=== PATIENT | female | born 1995 | race Hispanic/Latino ===

== ENCOUNTER 2018-10-04 10:54 | Observation (INO) | payer OTHER ==
[2018-10-04] MEDS ORDERED: CLINDAMYCIN 900MG/D5W 0 MG/0 ML IVPB IV ONE (11:32)
[2018-10-04] MEDS ORDERED: LIDOCAINE 1% MPF 5 ML VIAL ONE (11:32)
[2018-10-04 11:53] LABS: Absolute Lymphocytes (CBC) 1.8 K/uL (0.7-4.9); Basophils % 0.3 % (0-1.3); Lymphocytes % 13.8 % (15.3-44.8); MPV 10.1 fL (7.6-11.3); RBC Red Blood Cell Count 4.78 M/uL (3.86-4.86)
[2018-10-04] MEDS ORDERED: FENTANYL CITR 100 MCG/2 ML ONE (11:53)
[2018-10-04] MEDS ORDERED: CLINDAMYCIN 900MG/D5W 900 MG/50 ML IVPB IV ONE (11:54)
[2018-10-04] MEDS ORDERED: ACETAMINOPHEN 500 MG TAB ONE (11:54)
[2018-10-04 12:07] LABS: Urine Specific Gravity 1.025 (1.005-1.030)
[2018-10-04 12:08] LABS: Urine Blood TRACE (NEG); Urine Glucose NEGATIVE (NEG); Urine Protein 1+ (NEG); Urine pH 5.5 (5.0-7.0)
[2018-10-04 12:20] LABS: BUN Blood Urea Nitrogen 7 mg/dL (7-18); Bicarbonate 24 mmol/L (21-32); Glucose Level 95 mg/dL (74-106); Potassium 3.7 mmol/L (3.5-5.1); Sodium Level 138 mmol/L (136-145)
[2018-10-04 12:33] LABS: Urine Bacteria 20-50 /HPF (<20); Urine Culture Reflex Order ND; Urine Mucus 3+ /HPF (NONE SEEN); Urine RBC <5 /HPF (NONE SEEN)
[2018-10-04] MEDS ORDERED: PIPER/TAZO/NS 3.375gm 3.375 GM/100 ML BAG ONE (15:46)
[2018-10-04] MEDS ORDERED: VANCOMYCIN 1.5 GM in NA CHLORIDE 0.9% 500 ML IVPB ONE (16:00)
--- NOTE | 2018-10-04 16:04 | ER ---
Nurse's Notes [facility] Name: Mariya Herrera Age: 23 yrs Sex: Female : 1995 Arrival Date: 10/04/2018 Time: 10:59 Bed 19 Private MD: None, None Diagnosis: acute pilonidal abscess Presentation: 10/04 11:01 Presenting complaint: Abscess on buttock x 2-3 days. Transition of care: patient was hb not received from another setting of care. Onset of symptoms was October 02, 2018. Risk Assessment: Do you want to hurt yourself or someone else? Patient reports no desire to harm self or others. Initial Sepsis Screen: Does the patient meet any 2 criteria? No. Patient's initial sepsis screen is negative. Does the patient have a suspected source of infection? No. Patient's initial sepsis screen is negative. Care prior to arrival: None. 11:01 Method Of Arrival: Ambulatory hb 11: Acuity: RAMIREZ 4 hb Triage Assessment: 11: General: Appears in no apparent distress. comfortable, Behavior is calm, cooperative, bp appropriate for age. Pain: Complains of pain in buttocks. EENT: No deficits noted. Neuro: No deficits noted. Cardiovascular: No deficits noted. Respiratory: No deficits noted. GI: No signs and/or symptoms were reported involving the gastrointestinal system. : No signs and/or symptoms were reported regarding the genitourinary system. Derm: Abscess located on buttocks. Musculoskeletal: No deficits noted. 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 - Social history:: Smoking status: Patient/guardian denies using tobacco. - Ebola Screening: : No symptoms or risks identified at this time. - Family history:: not pertinent. - Hospitalizations: : No recent hospitalization is reported. Screenin:07 Abuse screen: Denies threats or abuse. Denies injuries from another. Nutritional bp screening: No deficits noted. Tuberculosis screening: No symptoms or risk factors identified. Fall Risk None identified. Assessment: 11:02 General: SEE TRIAGE NOTE. bp 13:00 Reassessment: ALL CURRENT ORDERS COMPLETED, I\T\D PENDING. bp 15:00 Reassessment: I\T\D COMPLETED, ADMIT PENDING FOR IV ABX. bp Vital Signs: 11:02 BP 129 / 87; Pulse 87; Resp 16; Temp 97.8; Pulse Ox 99% on R/A; Weight 81.65 kg; Height hb 5 ft. 4 in. (162.56 cm); Pain 4/10; 12:00 BP 115 / 83; Pulse 72; Resp 16; Pulse Ox 97% ; bp 13:00 BP 112 / 74; Pulse 74; Resp 16; Pulse Ox 97% ; bp 14:00 BP 106 / 75; Pulse 72; Resp 16; Pulse Ox 99% ; bp 15:25 BP 101 / 70; Pulse 76; Resp 16; Pulse Ox 97% ; bp 11:02 Body Mass Index 30.90 (81.65 kg, 162.56 cm) hb ED Course: 10:59 Patient arrived in ED. mr 10:59 None, None is Private Physician. mr 11:02 Triage completed. hb 11:02 Arm band placed on. hb 11:03 Parag Lopez, RN is Primary Nurse. bp 11:04 Juan Antonio Palmer MD is Attending Physician. wa 11:07 Patient has correct armband on for positive identification. Placed in gown. Bed in low bp position. Call light in reach. Side rails up X2. 11:35 Urine collected: clean catch specimen, latia colored. 3 11:40 Initial lab(s) drawn, by sc, sent to lab. Inserted saline lock: 22 gauge in right dh3 antecubital area, using aseptic technique. Blood collected. 15:24 Assist provider with I \T\ D: of an abscess on pilonidal cyst Set up I\T\D tray. Performed bp by Juan Antonio Palmer MD Wound packed. iodoform gauze, Patient tolerated well. 16:02 Ethan Quiroz MD is Hospitalizing Provider. wa 17:19 Patient admitted, IV remains in place. bp Administered Medications: 11:40 Drug: Tylenol 1000 mg Route: PO; bp 15:56 Follow up: Response: No adverse reaction bp 12:00 Drug: Clindamycin 900 mg Route: IVPB; Infused Over: 30 mins; Site: right antecubital; bp 12:30 Follow up: IV Status: Completed infusion; IV Intake: 50ml bp 12:00 Drug: fentaNYL (PF) 50 mcg Route: IVP; Site: right antecubital; bp 15:57 Follow up: Response: Pain is decreased bp 12:00 Drug: Lidocaine (1 %) 5 ml Volume: 5 ml; Route: Infiltration; bp 15:55 Drug: Zosyn 3.375 grams Route: IVPB; Infused Over: 60 mins; Site: right antecubital; bp 16:32 Follow up: IV Status: Completed infusion; IV Intake: 100ml bp 16:32 Drug: vancoMYCIN 1 grams Route: IVPB; Infused Over: 2 hrs; Site: right antecubital; bp 17:20 Follow up: IV Status: Infusion continued upon admission bp Intake: 12:30 IV: 50ml; Total: 50ml. bp 16:32 IV: 100ml; Total: 150ml. bp Outcome: 16:03 Decision to Hospitalize by Provider. wv 17:18 Admitted to Med/surg accompanied by tech, family with patient, via wheelchair, room bp 407, with chart, Report called to HUY SIMPSON 17:18 Condition: stable 17:18 Instructed on the need for admit. 17:29 Patient left the ED. bp Signatures: Kathrin Mancuso Heather, RN RN Alexandra Hammond [facility] Juan Antonio Palmer MD MD wa Peltier, Brian, RN RN bp
--- NOTE | 2018-10-04 16:04 | EDPHYS ---
Physician Documentation [facility] Name: Mariya Herrera Age: 23 yrs Sex: Female : 1995 Arrival Date: 10/04/2018 Time: 10:59 Bed 19 Private MD: None, None ED Physician Juan Antonio Palmer HPI: 10/04 15:56 This 23 yrs old Female presents to ER via Ambulatory with complaints of Cyst. wa 15:56 the patient presents with a swollen area of the buttocks/midline tailbone. Description: wa localized, draining, fluctuant, swollen. Onset: The symptoms/episode began/occurred 3 day(s) ago. Possible cause(s): h/o pilonidal abscess in same area in the past. Associated signs and symptoms: Pertinent positives: drainage, swelling, chills. Modifying factors: the symptoms are alleviated by nothing, the symptoms are aggravated by nothing. Severity of symptoms: At their worst the symptoms were moderate, in the emergency department the symptoms are unchanged. The patient has experienced a previous episode. The patient has not recently seen a physician. 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 - Social history:: Smoking status: Patient/guardian denies using tobacco. - Ebola Screening: : No symptoms or risks identified at this time. - Family history:: not pertinent. - Hospitalizations: : No recent hospitalization is reported. ROS: 15:58 Constitutional: Negative for fever, chills, and weight loss, Eyes: Negative for injury, wa pain, redness, and discharge, ENT: Negative for injury, pain, and discharge, Neck: Negative for injury, pain, and swelling, Cardiovascular: Negative for chest pain, palpitations, and edema, Respiratory: Negative for shortness of breath, cough, wheezing, and pleuritic chest pain, Abdomen/GI: Negative for abdominal pain, nausea, vomiting, diarrhea, and constipation, Back: Negative for injury and pain, : Negative for injury, bleeding, discharge, and swelling, MS/Extremity: Negative for injury and deformity, Neuro: Negative for headache, weakness, numbness, tingling, and seizure, Psych: Negative for depression, anxiety, suicide ideation, homicidal ideation, and hallucinations. 15:58 Skin: Positive for abscess, swelling, of the gluteal cleft. Exam: 15:59 Constitutional: This is a well developed, well nourished patient who is awake, alert, wa and in no acute distress. Head/Face: Normocephalic, atraumatic. Eyes: Pupils equal round and reactive to light, extra-ocular motions intact. Lids and lashes normal. Conjunctiva and sclera are non-icteric and not injected. Cornea within normal limits. Periorbital areas with no swelling, redness, or edema. ENT: Nares patent. No nasal discharge, no septal abnormalities noted. Tympanic membranes are normal and external auditory canals are clear. Oropharynx with no redness, swelling, or masses, exudates, or evidence of obstruction, uvula midline. Mucous membranes moist. Neck: Trachea midline, no thyromegaly or masses palpated, and no cervical lymphadenopathy. Supple, full range of motion without nuchal rigidity, or vertebral point tenderness. No Meningismus. Chest/axilla: Normal chest wall appearance and motion. Nontender with no deformity. No lesions are appreciated. Cardiovascular: Regular rate and rhythm with a normal S1 and S2. No gallops, murmurs, or rubs. Normal PMI, no JVD. No pulse deficits. Respiratory: Lungs have equal breath sounds bilaterally, clear to auscultation and percussion. No rales, rhonchi or wheezes noted. No increased work of breathing, no retractions or nasal flaring. Abdomen/GI: Soft, non-tender, with normal bowel sounds. No distension or tympany. No guarding or rebound. No evidence of tenderness throughout. Back: No spinal tenderness. No costovertebral tenderness. Full range of motion. MS/ Extremity: Pulses equal, no cyanosis. Neurovascular intact. Full, normal range of motion. Neuro: Awake and alert, GCS 15, oriented to person, place, time, and situation. Cranial nerves II-XII grossly intact. Motor strength 5/5 in all extremities. Sensory grossly intact. Cerebellar exam normal. Normal gait. Psych: Awake, alert, with orientation to person, place and time. Behavior, mood, and affect are within normal limits. 15:59 Skin: Appearance: normal except for affected area, abscess, that is moderate sized, of the gluteal cleft, with drainage, that is bloody, that is purulent. Vital Signs: 11:02 BP 129 / 87; Pulse 87; Resp 16; Temp 97.8; Pulse Ox 99% on R/A; Weight 81.65 kg; Height hb 5 ft. 4 in. (162.56 cm); Pain 4/10; 12:00 BP 115 / 83; Pulse 72; Resp 16; Pulse Ox 97% ; bp 13:00 BP 112 / 74; Pulse 74; Resp 16; Pulse Ox 97% ; bp 14:00 BP 106 / 75; Pulse 72; Resp 16; Pulse Ox 99% ; bp 15:25 BP 101 / 70; Pulse 76; Resp 16; Pulse Ox 97% ; bp 11:02 Body Mass Index 30.90 (81.65 kg, 162.56 cm) hb Procedures: 16:00 I \T\ D: Incision and drainage was performed for an abscess of the pilonidal cyst Prepped wa with Betadine, Anesthetized with 5 ml's 1% Lidocaine. Incised with #11 blade. Drained moderate amount purulent fluid. bloody fluid. Packed with iodoform gauze, Dressing: sterile 4x4 gauze, the patient tolerated the procedure well. MDM: 11:04 Patient medically screened. nc 16:00 Differential diagnosis: abscess, cellulitis, pilonidal abscess. will I\T\D. abx. pain wa control. reassess. Data reviewed: vital signs, nurses notes, lab test result(s). Test interpretation: by ED physician or midlevel provider: noted leukocytosis. Response to treatment: the patient's symptoms have markedly improved after treatment. Physician consultation: Ethan Quiroz MD. Admission orders: after a detailed discussion of the patient's condition and case, the admit orders are written by me. 16:03 Special discussion: very deep wound. drained and washed out by me. I will admit for IV wa abx however due to extent of lesion, may require IV abx and surgical eval. . 10/04 11:27 Order name: Basic Metabolic Panel; Complete Time: 13:42 10/04 11:27 Order name: CBC with Diff; Complete Time: 13:42 10/04 11:27 Order name: Urine Microscopic Only; Complete Time: 13:41 nc 10/04 11:48 Order name: Urine Dipstick--Ancillary (enter results) 10/04 11:48 Order name: Urine --Ancillary (enter results) 10/04 11:27 Order name: Urine Test (obtain specimen); Complete Time: 11:48 10/04 11:27 Order name: IV Saline Lock; Complete Time: 11:40 nc 10/04 11:27 Order name: Labs collected and sent; Complete Time: 11:48 10/04 11:27 Order name: NPO; Complete Time: 11:41 10/04 11:27 Order name: Urine Dipstick-Ancillary (obtain specimen); Complete Time: 11:48 nc 10/04 11:27 Order name: I\T\D Setup; Complete Time: 11:48 nc Administered Medications: 11:40 Drug: Tylenol 1000 mg Route: PO; bp 15:56 Follow up: Response: No adverse reaction bp 12:00 Drug: Clindamycin 900 mg Route: IVPB; Infused Over: 30 mins; Site: right antecubital; bp 12:30 Follow up: IV Status: Completed infusion; IV Intake: 50ml bp 12:00 Drug: fentaNYL (PF) 50 mcg Route: IVP; Site: right antecubital; bp 15:57 Follow up: Response: Pain is decreased bp 12:00 Drug: Lidocaine (1 %) 5 ml Volume: 5 ml; Route: Infiltration; bp 15:55 Drug: Zosyn 3.375 grams Route: IVPB; Infused Over: 60 mins; Site: right antecubital; bp 16:32 Follow up: IV Status: Completed infusion; IV Intake: 100ml bp 16:32 Drug: vancoMYCIN 1 grams Route: IVPB; Infused Over: 2 hrs; Site: right antecubital; bp 17:20 Follow up: IV Status: Infusion continued upon admission bp Disposition: 10/04/18 16:03 Hospitalization ordered by Ethan Quiroz for Observation. Preliminary diagnosis is acute pilonidal abscess. - Bed requested for Telemetry/MedSurg (observation). - Status is Observation. bp - Condition is Stable. - Problem is new. - Symptoms have improved. UTI on Admission? No Signatures: Dispatcher [employer] EDMS Constanza Mariano bd José Miguel López, RN RN Mable Mehta, RN RN Juan Antonio Palmer MD MD wa Peltier, Brian, RN RN bp Corrections: (The following items were deleted from the chart) 16:45 16:03 Hospitalization Ordered by Ethan Quiroz MD for Observation. Preliminary diagnosis bd is acute pilonidal abscess. Bed requested for Telemetry/MedSurg (observation). Status is Observation. Condition is Stable. Problem is new. Symptoms have improved. UTI on Admission? No. wa 17:29 16:45 10/04/2018 16:03 Hospitalization Ordered by Ethan Quiroz MD for Observation. bp Preliminary diagnosis is acute pilonidal abscess. Bed requested for Telemetry/MedSurg (observation). Status is Observation. Condition is Stable. Problem is new. Symptoms have improved. UTI on Admission? No. bd
[2018-10-04] MEDS ORDERED: ONDANSETRON 4 MG/2 ML VIAL IV PRN (16:08)
[2018-10-04] MEDS ORDERED: VANCOMYCIN/NS 1 gm 1 GM/250 ML BAG IVPB SCH (16:15)
[2018-10-04] MEDS ORDERED: PIPER/TAZO/NS 3.375gm 3.375 GM/100 ML BAG IVPB SCH (18:00)
[2018-10-04] MEDS: D5.45NS W/KCL 20MEQ 1,000 ML IV SCH (18:06)
[2018-10-04 18:12] VITALS: BMI 33.5
[2018-10-05] MEDS: PIPER/TAZO/NS 3.375gm 3.375 GM/100 ML BAG IVPB SCH ×3 (00:10→17:41)
[2018-10-05] MEDS: MORPHINE 4 MG/ML SYR IV PRN ×2 (00:10→08:41)
[2018-10-05] MEDS: D5.45NS W/KCL 20MEQ 1,000 ML IV SCH ×2 (03:49→13:00)
[2018-10-05] MEDS: VANCOMYCIN 1.5 GM in NA CHLORIDE 0.9% 500 ML IVPB SCH ×2 (03:49→15:37)
[2018-10-05 06:05] LABS: Absolute Lymphocytes (CBC) 1.8 K/uL (0.7-4.9); Basophils % 0.6 % (0-1.3); Hematocrit 35.5 % (36.0-45.0); Lymphocytes % 18.5 % (15.3-44.8); MPV 9.9 fL (7.6-11.3); RBC Red Blood Cell Count 4.15 M/uL (3.86-4.86)
[2018-10-05 06:18] LABS: BUN Blood Urea Nitrogen 7 mg/dL (7-18); Bicarbonate 25 mmol/L (21-32); Glucose Level 102 mg/dL (74-106); Potassium 3.9 mmol/L (3.5-5.1); Sodium Level 140 mmol/L (136-145)
[2018-10-05] MEDS ORDERED: Ringers Lactate 1,000 ML IV ONE (10:40)
[2018-10-05] MEDS ORDERED: MIDAZOLAM HCL 2 MG/2 ML INJ ONE (10:44)
[2018-10-05] MEDS ORDERED: PROPOFOL 200 MG/20 ML VIAL IV ONE (10:44)
[2018-10-05] MEDS ORDERED: FENTANYL CITR 100 MCG/2 ML ONE (10:44)
[2018-10-05] MEDS ORDERED: LIDOCAINE 2% MPF 5 ML VIAL ONE (10:44)
[2018-10-05] MEDS ORDERED: ROCURONIUM 50 MG/5 ML VIAL IV ONE (10:45)
[2018-10-05] MEDS ORDERED: ONDANSETRON 4 MG/2 ML VIAL ONE (10:45)
--- NOTE | 2018-10-05 11:32 | P.OP ---
Preoperative diagnosis: Pilonidal Abscess Postoperative diagnosis: same Primary procedure: Wide Excision Pilonidal Abscess Anesthesia: General Estimated blood loss: min Specimen: pus and cyst Findings: as above Complications: None Transferred to: Recovery Room Condition: Good
[2018-10-05] MEDS ORDERED: KETOROLAC 30 MG/ML INJ ONE (11:35)
[2018-10-05] MEDS ORDERED: NEOSTIGMINE 1 MG/ML -10 ML VIAL ONE (11:48)
[2018-10-05] MEDS ORDERED: GLYCOPYRROLATE 0.2 MG/ML SYR ONE (11:48)
[2018-10-05] MEDS ORDERED: CHLORHEXIDINE GLUCO 4% 120 ML TOP SCH (12:07)
--- NOTE | 2018-10-05 14:29 | PREOPHP ---
Date of Admission: 10/04/2018 Reason: Pilonidal abscess. History Of Present Illness: The patient is a 23-year-old female who came to the emergency r oom with 2-day history of increasing pain and swelling localized between the gluteal crease. She cam e to the ER. She had a small I and D done; however, she is still complaining of pain. No fever or c hills. No sore throat, runny nose, cough, headaches, or dizziness. No chest pain. Review of Systems: Otherwise unremarkable. Past Medical History: Negative. Past Surgical History: Negative. Allergies: NO ALLERGIES. Social History: Patient does not smoke. Drinks occasionally. Family History: Noncontributory. Physical Examination: Vital signs: Stable. She is afebrile. General: She is awake, alert, and oriented x3. Head and Neck: Cranial nerves 2 through 12 are grossly within normal limits. No neck masses. No JV D. Throat clear. Neck is supple. Chest: Clear. Heart: S1 and S2. Abdomen: Soft. Extremities: Neurovascularly intact. Neuro: Nonfocal. Skin: On the pilonidal area between the buttocks, there is an incision approximately 3 to 4 mm in si ze. There was some iodoform gauze, which was removed. There was a lot of pus still inside the wound . There was surrounding edema, some fluctuance, tenderness. Laboratory Data: White count was 13.3 on admission, today is 9.8. Chemistry reviewed. Cultures wer e not done in the ER. Assessment: Pilonidal abscess and cellulitis. Recommendations: The patient will need a formal incision and drainage of the pilonidal abscess. We will take the patient to the OR for that. Patient understands the risks, benefits, and alternatives and agrees to procedure. In the meantime, continue IV antibiotics. We will get OR cultures and adju st the antibiotics accordingly after the sensitivities come back. LISA/HANS Voice ID: [id number]
[2018-10-05] MEDS: MUPIROCIN 2% OINT 22GM TUBE TOP SCH (21:21)
[2018-10-05 23:10] VITALS: O2SAT 97
[2018-10-05] MEDS: ACETAMINOPHEN 500 MG TAB PO PRN (23:33)
--- NOTE | 2018-10-05 23:35 | OP ---
Date of Procedure: 10/05/2018 Surgeon: Ethan Quiroz MD Preoperative Diagnosis: Pilonidal abscess. Postoperative Diagnosis: Pilonidal abscess. Procedure: Wide excision of pilonidal abscess. Estimated Blood Loss: Minimal. Specimen: Pus and cyst. Findings: As above. Anesthesia: General. Complications: None. Disposition: Patient tolerated the procedure in stable condition, taken to Recovery in good general condition. Description Of Procedure: Patient was brought to the OR, placed in supine position. General anesthe woodrow was begun. Patient was placed in the prone position, prepped and draped in usual sterile fashion . 15 blade was used to make an incision approximately 6 x 3 cm to include the previous I and D incis ion, which was approximately 4 mm in length and dissection proceeded all the way down. There was pus under pressure, that was present in the cyst. Cultures were done and then I went to all the normal tissue around the edges of the cyst, excised it down to the presacral fascia, and then excised the en tire cyst, sent to Pathology as specimen. Wound was irrigated. Bleeding was controlled with cautery . Wet-to-dry normal saline dressing change was applied. Patient tolerated the procedure in stable c ondition, taken to Recovery in good general condition. Marcaine 0.5% was infiltrated prior to the incision for posto p pain control. /MODL Voice ID: [id number] Report ID: [id number]
[2018-10-06] MEDS: PIPER/TAZO/NS 3.375gm 3.375 GM/100 ML BAG IVPB SCH ×2 (00:37→08:53)
[2018-10-06] MEDS: VANCOMYCIN 1.5 GM in NA CHLORIDE 0.9% 500 ML IVPB SCH (05:04)
[2018-10-06] MEDS: MUPIROCIN 2% OINT 22GM TUBE TOP SCH (08:53)
[2018-10-06] MEDS: D5.45NS W/KCL 20MEQ 1,000 ML IV SCH ×2 (08:57→09:00)
[2018-10-06] MEDS: ACETAMINOPHEN 500 MG TAB PO PRN (13:06)
[2018-10-06] MEDS ORDERED: VANCOMYCIN 1.75 GM in NA CHLORIDE 0.9% 500 ML IVPB SCH (16:00)
[2018-10-06 16:21] VITALS: BP 104/62; TEMP 97.6
[2018-10-06] MEDS ORDERED: PIPER/TAZO/NS 3.375gm 3.375 GM/100 ML BAG IVPB SCH (17:00)
--- NOTE | 2018-10-07 12:41 | DS ---
Date of Discharge: 10/06/2018 Admitting Diagnosis: Pilonidal abscess. Discharge Diagnosis: Pilonidal abscess. Procedure Performed: Excision of the pilonidal abscess. Hospital Course: Patient is a 23-year-old female who underwent the aforementioned procedure yesterda y. Postoperatively, she was tolerating diet, ambulating pain controlled with p.o. pain medication, a febrile. Cultures are pending. However, she is clinically doing well. Therefore, patient will be d ischarged to home. Disposition: Home. Condition: Stable. Discharge Instructions: Resume home medications and diet. Activity as tolerated. No heavy lifting. Wet-to-dry normal saline dressing changes daily. Cipro 500 mg p.o. q.12, Bactrim DS 1 tablet p.o. q.12, Tylenol No. 3 one tablet p.o. q.4 p.r.n. pain. Follow up in my office in 2 weeks, call for kevin ointment. LISA/HANS Voice ID: [id number] Report ID: [id number]
== END 2018-10-06 16:27 | disposition home or self-care (01) ==
LOC: ER 10:54 → ERHOLD 16:07 → 4TH 17:18 → UNDODISOB 10-06 14:46
PROVIDERS: ADMIT Surgery; ATTEND Surgery
PROC: 0JB90ZZ Excision of Buttock Subcutaneous Tissue and Fascia, Open Approach (ICD-10-PCS; principal; 2018-10-04)
DX: L05.01 Pilonidal cyst with abscess (principal); G89.18 Other acute postprocedural pain
CPT/HCPCS: 11770; 96365; 96367; 87070; 85025 ×2; 80048 ×2; 36415 ×2; 87205; 81025; 88304; 80202; 96375; 99285; J2704; J2710; J2250; J3010 ×2; J2543 ×3; J2405; G0378 ×2; 81003; 81015